=== PATIENT | male | born 1965 | race Caucasian/White ===

== ENCOUNTER 2016-08-24 15:58 | Emergency (ER) | payer SELFPAY ==
[~2016-08-24] VITALS: Ht 182.9 cm; Wt 75.0 kg
[2016-08-24] MEDS ORDERED: ASPIRIN 81 MG TABLET CHEW PO ONE (16:30)
[2016-08-24] MEDS ORDERED: SODIUM CHLORIDE FLUSH 10ML SYR IVF ONE (16:30)
[2016-08-24 16:45] LABS: ASPARTATE AMINO TRANSFERASE 23 U/L (15-37); BLOOD UREA NITROGEN 9 mg/dL (7-18)
[2016-08-24 16:55] LABS: IS PT STATUS REG ER OR PRE ER? YES
[2016-08-24] MEDS ORDERED: NITROGLYCERIN OINT 2%, 1GM TP ONE ×3 (17:06→17:30)
[2016-08-24] MEDS ORDERED: ASPIRIN 81 MG TABLET CHEW ONE (17:06)
[2016-08-24 18:25] VITALS: BP 147/81
[2016-08-24 18:37] LABS: DAU SCREEN DISCLAIMER
== END 2016-08-24 19:02 | disposition home or self-care (01) ==
LOC: ED 16:50
DX: R07.89 Other chest pain (principal); I10 Essential (primary) hypertension
CPT/HCPCS: 36415; 71010; 80053; 80307; 80329; 83690; 83880; 84484; 85025; 93005; G0480

== ENCOUNTER 2019-06-10 15:57 | Emergency (ER) | payer MEDICAID ==
[~2019-06-10] VITALS: Ht 182.9 cm; Wt 72.6 kg
[2019-06-10 16:00] VITALS: BP 109/85
== END 2019-06-10 16:23 | disposition home or self-care (01) ==
LOC: ED 16:10
DX: R05 Cough (principal); R09.81 Nasal congestion; R50.9 Fever, unspecified; F17.200 Nicotine dependence, unspecified, uncomplicated
CPT/HCPCS: 99283

== ENCOUNTER 2019-11-10 17:13 | Emergency (ER) | payer MEDICAID ==
[~2019-11-10] VITALS: Ht 182.9 cm; Wt 67.9 kg
[2019-11-10 17:17] VITALS: BP 123/90
[2019-11-10] MEDS ORDERED: PROPARACAINE OPHTH 0.5%, 15ML ONE (17:46)
[2019-11-10] MEDS ORDERED: FLUORESCEIN OPHTHALMIC 1 MG STRIP ONE (17:46)
--- NOTE | 2019-11-10 17:51 | NUR ---
Pt was Grinding some metal at his shop. Pt then was cleaning up and felt something go in his right eye. Pt reports FB sensation present since last night and has not resolved. Pt reports burining sensation as well. Pt in eye room and prepped for exam.
--- NOTE | 2019-11-10 18:07 | NUR ---
Provider at bedside using nori pen and slit lamp to remove FB. Pt has small metal fragment.
[2019-11-10] MEDS ORDERED: PROPARACAINE OPHTH 0.5%, 15ML RIGHTEYE STA (18:08)
[2019-11-10] MEDS ORDERED: FLUORESCEIN OPHTHALMIC 1 MG STRIP RIGHTEYE ONE (18:30)
--- NOTE | 2019-11-10 19:04 | NUR ---
Patient given discharge instructions and they have confirmed that they understand the instructions. Patient ambulatory with steady gait. denies additional questions or needs at this time. NAD, no pt belongings left in room after dc.
== END 2019-11-10 19:09 | disposition home or self-care (01) ==
LOC: ED 19:08
DX: T15.01XA Foreign body in cornea, right eye, initial encounter (principal); H53.2 Diplopia
CPT/HCPCS: 65222; 99284